=== PATIENT | male | born 1995 | race Caucasian/White ===

== ENCOUNTER 2025-04-19 08:37 | Emergency (ER) | payer OTHER, SELFPAY ==
[2025-04-19 08:38] VITALS: BP 149/101; PULSE 114; RESP 16; TEMP 37.1; O2SAT 99; BMI 41.1
--- NOTE | 2025-04-19 09:15 | EKG12_ITS ---
Test Reason : DYSRHYTHMIA Blood Pressure : */* mmHG Vent. Rate : 97 BPM Atrial Rate : 97 BPM P-R Int : 140 ms QRS Dur : 82 ms QT Int : 322 ms P-R-T Axes : 41 22 39 degrees QTcB Int : 408 ms Normal sinus rhythm Normal ECG Reconfirmed by Karen Doran ([id number]), food expeditor CARLEY SOLIZ ([id number]) on 04/22/2025 10:24:06 AM Also confirmed by Karen Doran ([id number]), food expeditor CARLEY SOLIZ ([id number]) on 04/23/2025 8:32:09 AM Referred By: CORETTA Confirmed By: Karen Doran
--- NOTE | 2025-04-19 09:16 | US_ITS ---
PROCEDURE: ABDOMEN LIMITED 04/19/2025 REASON FOR EXAM: REPEAT, ABD PAIN TECHNIQUE: Procedure Code: USABDL Modality: US Procedure: ABDOMEN LIMITED COMPARISON: None FINDINGS: Liver: Liver is enlarged at 19 cm and shows diffuse fatty infiltration, no discrete lesion. Gallbladder: Distends normally without evidence of echogenic debris. Gallbladder wall measures 1.1 mm. Hearing And Speech Assistant notes a negative Li's sign, no pericholecystic fluid. Common bile duct: Normal measuring 2.5 mm. Pancreas: Visualized pancreas is nonspecifically echogenic. Kidneys: The right kidney measures 11.4 x 4.9 x 5.1 cm. No hydronephrosis, calculi or mass. Cortex measures 1.3 cm US/Abdomen Limited IMPRESSION: Hepatomegaly with diffuse fatty infiltration of the liver, no discrete lesion Reading Location: [id number]
[2025-04-19 09:23] LABS: Hematocrit 43.6 % (40-54); Hemoglobin 14.4 g/dL (13.0-16.5); Immature Granulocytes Count 0.050 X10^3/uL (0.0-0.0); Mean Corp Hgb Conc 33.0 g/dL (32-36); Mean Corpuscular Volume 82.0 fL (80-94); Mean Platelet Vol. 10.7 fl (6.2-12.0); NRBC Flagged by Analyzer 0 % (0-5); POSITIVE DIFFERENTIAL YES; Platelet Count 254 K/mm3 (150-450); RBC Distribution Width CV 12.9 % (11.6-14.6); RBC Distribution Width SD 38.1 fl (35.1-43.9); Red Blood Count 5.32 M/mm3 (4.6-6.2); White Blood Count 11.0 K/mm3 (4.4-11.0)
[2025-04-19] MEDS: 0.9% Normal Saline (1000mL) 1,000 ML 1000 ML IV (09:26)
--- NOTE | 2025-04-19 09:35 | RAD_ITS ---
PROCEDURE: CHEST 1 VIEW (PORTABLE) 04/19/2025 REASON FOR EXAM: CHEST PAIN TECHNIQUE: Frontal view of the chest. COMPARISON: None FINDINGS: Hardware: EKG electrodes are seen. Heart: Cardiac and mediastinal contours are stable. Lungs: The lungs are clear. Bones: The bones are unremarkable. RAD/Chest 1 View (Portable) IMPRESSION: No Acute Findings. Reading Location: [id number]
[2025-04-19 09:44] LABS: AST(SGOT) 21 U/L (<=37); Alanine Aminotransfer ALT/SGPT 20 U/L (<=46); Albumin, Serum 4.2 g/dL (3.5-5.0); Alkaline Phosphatase 58 U/L (40-129); Anion Gap 11 (5-15); BUN 11 mg/dL (4-19); BUN/Creat Ratio 10.6 RATIO (10-20); Calcium,Total 9.3 mg/dL (7.6-11.0); Carbon Dioxide 24.8 mmol/L (21.0-32.0); Chloride 101 mmol/L (98-108); Estimated Creatinine Clearance 153.80 ml/min (50-250); Globulin 2.9 g/dL (2.2-4.2); Glucose 90 mg/dL (70-99); Lipase 38 U/L (13-75); Potassium 4.6 mmol/L (3.3-5.1)
[2025-04-19 09:56] LABS: Mucous, Urine 0 SEEN /hpf (<or=2+); Red Blood Cells-Urine 0 SEEN /hpf (0-5); Squamous Epithelial Cells - UA 0 SEEN /hpf (0-5)
--- NOTE | 2025-04-19 09:56 | EX.ED.DYSGE1 ---
HPI History of Present Illness Chief Complaint: Abd Pain Narrative Narrative: Pt is a 29-year-old male who is presenting to the ER today with chief complaint of 3-day history of nausea, vomiting, right upper quadrant discomfort. Patient has known gallbladder disease. Patient is seeing a surgeon on May 08 to schedule surgery. Patient states he has fever last evening, nausea no vomiting. Patient stated he wanted to vomit last night and this morning but did not. Patient has right lower chest pain. Patient has no radiation of pain to neck or shoulder. No bowel or bladder changes. No history of kidney stone. Patient has no recent traveling. Sisters at bedside. Patient has no rash. Patient is concerned for gallbladder attack and wondering if he needs his gallbladder out sooner than later. Patient does not recall if he had gallstones on his last gallbladder ultrasound report or not. Patient is a poor historian, states that he saw somebody previously, unsure if it was a GI doctor or a surgeon. Patient non-smoker, rare alcohol, no illicit drug use. No recent heavy lifting, twisting or turning. No rash. REVIEW OF SYSTEMS: Unless otherwise stated in this report the patient's positive and negative responses for review of systems for constitutional, eyes, ENT, cardiovascular, respiratory, gastrointestinal, neurological, , musculoskeletal, and integument systems and related systems to the presenting problem are either stated in the history of present illness or were not pertinent or were negative for the symptoms and/or complaints related to the presenting medical problem. Nurse's notes and vital signs reviewed. The patient is not hypoxic. Vital signs reviewed and patient is not hypoxic. General: The patient appears well and in no apparent distress. Patient is resting comfortably on cart. Not toxic, lethargic, or listless. Skin: Warm, dry, no pallor noted. There is no rash noted. Head: Normocephalic, atraumatic Eye: Normal conjunctiva, no drainage, EOMI. PERRL. Ears, Nose, Mouth, and Throat: oral mucosa is moist. Nares patent. Mouth without vesicles. Cardiovascular: Regular Rate and Rhythm, no murmurs, gallops, or rubs. Mild reproducible tenderness palpation over right lower anterior chest wall, but most of his pain is to the right upper quadrant pain Respiratory: Patient is in no distress, no accessory muscle use, lungs are clear to auscultation, no wheezing, rales or rhonchi Back: non-tender, no CVA tenderness bilaterally to percussion. NO CTLS midline or paraspinal tenderness to palpation. GI: Soft, positive Li sign, mild to moderate right upper quadrant tenderness palpation, mild midepigastric tenderness palpation, obese, no rash, no flank pain bilateral, no peritoneal signs, otherwise no tenderness to palpation, no masses appreciated. No rebound, guarding, or rigidity noted. Musculoskeletal: The patient has full range of motion of all extremities and joints with no difficulty. Patient has no motor, no sensory deficits. Neurological: A&O x4, normal speech, no focal neurological deficits. Psychiatric: Cooperative [facility] Medical History (Updated 04/19/25 @ 11:[address] Galileo Myers, DO) Acid reflux Home Medications ?Medication ?Instructions ?Recorded ?Last Taken ?Type omeprazole 40 mg capsule,delayed 40 mg PO QDAY 03/19/25 Unknown History release semaglutide 2 mg/dose (8 mg/3 mL) 2 mg subcut QWEEK 03/19/25 Unknown History subcutaneous pen injector (Ozempic) methylprednisolone 4 mg tablets in 4 mg PO BID #21 tabs 04/04/25 Unknown Rx a dose pack (Medrol (Alexx)) hydrocodone-acetaminophen 5-325mg 1 tab PO Q6H PRN PRN Pain 3 days 04/19/25 Unknown Rx 5mg-325mg #8 TABLETS ondansetron 4 mg disintegrating 4 mg PO Q8H PRN PRN Nausea #10 tabs 04/19/25 Unknown Rx tablet Allergy/AdvReac Type Severity Reaction Status Date / Time No Known Allergies Allergy Verified 04/19/25 08:39 Surgical History Hx of tonsillectomy Hx of appendectomy Social History Smoking Status: Never smoker EXAM Physical Exam Const Vital Signs: 04/19/25 08:38 04/19/25 10:54 Temperature 98.8 F Temperature Source Oral Pulse Rate 114 H 109 H Respiratory Rate 16 17 Blood Pressure 149/101 H 118/79 Blood Pressure Mean 117 92 Pulse Ox 99 100 Oxygen Delivery Method Room Air Room Air MDM MDM MDM Narrative Medical decision making narrative: Patient seen and examined: IV, repeat ultrasound, IV Zofran, fluids, Toradol, Pepcid. Repeat labs. Differential diagnosis includes but is not limited to: Acute cholecystitis, biliary colic, gastritis, ACS, kidney stone, gastritis, pneumonia Relevant laboratory interpretation: Repeat labs show no elevation of LFTs, lipase, no elevated white blood cell count. Radiological studies: Gallbladder ultrasound shows no acute findings, fatty liver disease. This was discussed with patient. He was given a copy of her his ultrasound report. Reevaluation: Patient feels better after IV Pepcid, Toradol, Zofran and IV fluids. EKG interpretation. Sinus tachycardia 101. Normal axis deviation. No acute ST elevation, no acute ectopy. QTc of 404. Social barriers to healthcare: There are no food insecurities, there is no issue with transportation, there are no insurance barriers Disposition: Patient will continue to follow-up with surgeon. Patient sent in with prescription for Zofran and [place] to use as needed. Patient to continue acid reflux medication. Patient is to call his surgeon, Dr. Alfred Hernandez to see if he can have a sooner follow-up than May 08. The surgeon is out of town next week. Patient was given strict return precautions for intractable abdominal pain, nausea or vomiting or any other acute concerns. Patient was educated on nonfatty diet And gallbladder diet. Patient stated that he ate a baconator from [place] a few days ago that started his symptoms. Patient ate spaghetti yesterday. Lab Data Attestation: I reviewed the patient's lab results. Labs: Laboratory Results - last 24 hr 04/19/25 04/19/25 08:58 09:50 WBC 11.0 RBC 5.32 Hgb 14.4 Hct 43.6 MCV 82.0 MCH 27.1 MCHC 33.0 RDW Std Deviation 38.1 RDW Coeff of Tanya 12.9 Plt Count 254 MPV 10.7 Immature Gran % (Auto) 0.500 Neut % (Auto) 86.1 H Lymph % (Auto) 4.1 L Bailey % (Auto) 8.4 Eos % (Auto) 0.6 Baso % (Auto) 0.3 Absolute Neuts (auto) 9.4 H Absolute Lymphs (auto) 0.45 L Nucleated RBC % 0 Sodium 137 Potassium 4.6 Chloride 101 Carbon Dioxide 24.8 Anion Gap 11 BUN 11 Creatinine 1.00 Estim Creat Clear Calc 153.80 Est GFR (MDRD) Non-Af 103 BUN/Creatinine Ratio 10.6 Glucose 90 Calcium 9.3 Total Bilirubin 0.62 AST 21 ALT 20 Alkaline Phosphatase 58 Total Protein 7.2 Albumin 4.2 Globulin 2.9 Albumin/Globulin Ratio 1.4 Lipase 38 Urine Color Yellow Urine Clarity Sl. Cloudy Urine pH 8.0 Ur Specific [place] 1.015 Urine Protein Negative Urine Glucose (UA) Normal Urine Ketones Negative Urine Occult Blood Negative Urine Nitrite Negative Urine Bilirubin Negative Urine Urobilinogen Normal Ur Leukocyte Esterase Negative Urine RBC 0 SEEN Urine WBC 0 SEEN Ur Squamous Epith Cells 0 SEEN Urine Bacteria 0 SEEN Urine Mucus 0 SEEN Radiography Diagnostic Testing: Clinical Impression(s) from Imaging Studies Abdomen Ultrasound 04/19/25 09:16 IMPRESSION: Hepatomegaly with diffuse fatty infiltration of the liver, no discrete lesion Reading Location: [id number] Chest X-Ray 04/19/25 09:35 IMPRESSION: No Acute Findings. Reading Location: [id number] Discharge Plan Triage Chief Complaint: Abd Pain ED Provider: Galileo Myers Dx/Rx/DC Orders Clinical Impression: Abdominal pain, Biliary colic, Nausea Instructions: Abdominal Pain, Understanding Gastritis, ED Vomiting (Adult) Prescriptions: New hydrocodone-acetaminophen 5-325 mg tablet 1 tab PO Q6H PRN PRN (Reason: Pain) 3 Days Qty: 8 0RF ondansetron 4 mg tablet,disintegrating 4 mg PO Q8H PRN PRN (Reason: Nausea) Qty: 10 0RF No Action omeprazole 40 mg capsule,delayed release(DR/EC) 40 mg PO QDAY Ozempic 2 mg/dose (8 mg/3 mL) pen injector 2 mg subcut QWEEK methylprednisolone [Medrol (Alexx)] 4 mg tablets,dose pack 4 mg PO BID Qty: 21 0RF Stand Alone Forms: ED Work / School Excuse Primary Care Provider: Ankit Allen Referrals: Ankit Allen PA [Primary Care Provider, Urgent Care] Activity Restrictions/Additional Instructions: A copy of your gallbladder ultrasound report has been given to you. Continue using antacid medication daily. Use onim-khn-[id number] Maalox, Mylanta if needed for heartburn or acid reflux. Do not use Tums, Rolaids, or Pepto-Bismol, You may alternate Tylenol and either Motrin, Advil, or ibuprofen every 4 hours for pain or fever. You may substitute [place] for Tylenol if the pain is severe. However, do not take [place] and Tylenol together, you may accidentally take too much Tylenol in 1 day. The maximum dose of Tylenol daily is 3000 mg. The maximum dose of either Motrin, Advil, or ibuprofen is 2400 mg daily. Take medication with food or drink to help buffer the medication in your stomach. Print Language: Vietnamese Disposition Disposition: Home, Self Care
[2025-04-19 09:58] LABS: Color, Urine Yellow (Yellow); Glucose, Dipstick Normal (Normal); Ketone-Dipstick Negative (Negative); Leukocyte Esterase-Dipstick Negative /ul (Negative); Nitrite-Dipstick Negative (Negative); Occult Blood-Urine Negative /ul (Negative); Protein-Dipstick Negative (Negative); Specific Gravity, Urine 1.015 (1.002-1.030); Urine Bilirubin Dipstick Negative (Negative)
[2025-04-19] MEDS: Famotidine 200 MG/20 ML MDV 20 MG in 0.9% Normal Saline (Pres. free 8 ML 300 MG IV (10:18)
[2025-04-19 10:54] VITALS: BP 118/79; PULSE 109; RESP 17; O2SAT 100
[2025-04-19 11:58] VITALS: BP 118/101; PULSE 112; RESP 18; TEMP 36.8; O2SAT 100
== END 2025-04-19 12:19 | disposition home or self-care (01) ==
PROVIDERS: Emergency Provider Emergency Medicine; PCP Physician Assistant; Visit Provider Emergency Medicine
DX: K80.50 Calculus of bile duct without cholangitis or cholecystitis without obstruction (principal); K76.0 Fatty (change of) liver, not elsewhere classified; R03.0 Elevated blood-pressure reading, without diagnosis of hypertension
CPT/HCPCS: 71045; 76705; 80053; 81001; 83690; 85025; 93005; 96374; 96375; 99283; A4216; J2405

== ENCOUNTER 2025-04-19 19:25 | Emergency (ER) | payer OTHER, SELFPAY ==
[2025-04-19 19:25] VITALS: BP 116/74; PULSE 109; RESP 16; TEMP 36.6; O2SAT 100; BMI 48.8
--- NOTE | 2025-04-19 20:45 | EKG12_ITS ---
Test Reason : Blood Pressure : */* mmHG Vent. Rate : 101 BPM Atrial Rate : 101 BPM P-R Int : 150 ms QRS Dur : 82 ms QT Int : 312 ms P-R-T Axes : 48 24 38 degrees QTcB Int : 404 ms Sinus tachycardia Otherwise normal ECG No previous ECGs available Confirmed by Umang Roberto (Kylee), features editor CARLEY SOLIZ ([id number]) on 04/23/2025 11:40:05 AM Also confirmed by Umang Roberto (Kylee), features editor CARLEY SOLIZ ([id number]) on 04/24/2025 9:47:46 AM Referred By: LUBA Confirmed By: Umang Roberto
[2025-04-19 21:12] LABS: Hematocrit 43.2 % (40-54); Hemoglobin 14.1 g/dL (13.0-16.5); Immature Granulocytes Count 0.040 X10^3/uL (0.0-0.0); Mean Corp Hgb Conc 32.6 g/dL (32-36); Mean Corpuscular Volume 82.4 fL (80-94); Mean Platelet Vol. 10.3 fl (6.2-12.0); NRBC Flagged by Analyzer 0 % (0-5); Platelet Count 236 K/mm3 (150-450); RBC Distribution Width CV 13.1 % (11.6-14.6); RBC Distribution Width SD 38.9 fl (35.1-43.9); Red Blood Count 5.24 M/mm3 (4.6-6.2); White Blood Count 11.1 K/mm3 (4.4-11.0)
--- NOTE | 2025-04-19 21:18 | EX.ED.DYSGE1 ---
HPI History of Present Illness Chief Complaint: Syncope Informant: patient and spouse/S.O. Onset/Context/Timing Onset: Today Context: Sudden Onset Timing: Intermittent Current Severity: Gone Maximum Severity: Moderate Narrative Narrative: 29-year-old male 2-day history of nasal congestion and fever. Was seen here had a negative workup. Had an outpatient COVID test x 2 which were both positive today. He was in the shower tonight he was feeling lightheaded drink some water and then had a syncopal episode that lasted probably about a minute according to his . He had syncopal episode before 1 time when he cut himself and saw his own blood. He denies any vomiting or diarrhea. Denies any melena. No chest pain. Prior similar symptoms: Yes Recent Illness/Hospitalization: No PFSH PFS Medical History Acid reflux Home Medications ?Medication ?Instructions ?Recorded ?Last Taken ?Type omeprazole 40 mg capsule,delayed 40 mg PO QDAY 03/19/25 Unknown History release semaglutide 2 mg/dose (8 mg/3 mL) 2 mg subcut QWEEK 03/19/25 Unknown History subcutaneous pen injector (Ozempic) methylprednisolone 4 mg tablets in 4 mg PO BID #21 tabs 04/04/25 Unknown Rx a dose pack (Medrol (Alexx)) Allergy/AdvReac Type Severity Reaction Status Date / Time No Known Allergies Allergy Verified 04/19/25 19:27 Surgical History Hx of tonsillectomy Hx of appendectomy Social History Smoking Status: Current some day smoker tobacco type: cigarettes ROS ROS ED ROS Narrative Nasal congestion fever and chills. Constitutional Constitutional ED: Reports chills and fever(s) Eyes Eyes: Denies blurry vision ENT ENT ED: Denies ear pain Respiratory/Chest Respiratory/Chest: Reports cough Gastrointestinal Gastrointestinal: Denies abdominal pain, diarrhea, melena, nausea or vomiting Genitourinary Genitourinary ED: Denies dysuria or hematuria Musculoskeletal Musculoskeletal: Denies arthralgias Integumentary Denies abscess Neurologic Neurologic: Denies headache(s) Psychiatric Psychiatric: Denies anxiety Endocrine Endocrinology: Denies cold intolerance Hematologic/Lymphatic Hematologic/Lymphatic: Reports none Allergic/Immunologic Allergic/Immunologic ED: Denies mouth swelling, tongue swelling or urticaria EXAM Physical Exam Narrative Exam Narrative: Well-appearing 29-year-old male. Vital signs stable he is tachycardic 109 pressure 160/74 pulse ox 100% on room air no signs hypoxia. He does not look septic or toxic he does look mildly dehydrated. H EENT exam pupils round react light. Mildly dry mucous membranes. No trauma to his face or scalp nontender no hematoma. C-spine neck nontender no lymphadenopathy. Back nontender. Lungs clear to auscultation bilaterally. Heart regular rhythm rate 110 no murmur. Chest wall ribs nontender. Abdomen soft nontender. Moving all 4 extremities. Nontender. No edema. No rashes. Normal range of motion and strength. Normal in appearance. Normal construction teacher strength. Normal dorsi plantarflexion. Back nontender. Neurologically is awake alert. Answer questions following commands. Const Vital Signs: 04/19/25 19:25 04/19/25 21:22 04/19/25 21:22 Temperature 98 F Temperature Source Oral Pulse Rate 109 H Respiratory Rate 16 Respiratory Effort Normal Non-Labored Respiratory Pattern Tachypnea Blood Pressure 116/74 Blood Pressure Mean 88 Pulse Ox 100 Oxygen Delivery Method Room Air Room Air 04/19/25 21:47 Temperature Temperature Source Pulse Rate 93 Respiratory Rate 20 H Respiratory Effort Respiratory Pattern Blood Pressure 137/71 H Blood Pressure Mean 93 Pulse Ox 97 Oxygen Delivery Method Room Air MDM MDM MDM Narrative Medical decision making narrative: 29-year-old male COVID-positive URI symptoms in the last 2 days. Negative recent workup this morning in emergency department. Received IV fluids syncope workup. By think more likely was dehydrated and when he got shower he vasodilated dropped his pressure and passed out. Clinically looks good at this time. Repeat exam at 10:30 PM patient doing well. He is sitting upright in bed. Says he is feeling okay. Repeat chest and abdominal exam unremarkable he looks good. He is comfortable being discharged to home. I went over the test results of both he and his . History & Record Review Discussion w/independent historian: Patient and Family Additional record(s) reviewed:: Prior outpatient record, Prior ED visit and Prior labs Lab Data Attestation: I reviewed the patient's lab results. Lab results narrative: CBC shows a white count 11.1. H&H 14 and 43. Platelets 236. Chemistries show a gap of 9. Normal BUN of 11 creatinine 1.1. Glucose 92. Liver enzymes unremarkable. Labs: Laboratory Results - last 24 hr 04/19/25 21:04 WBC 11.1 H RBC 5.24 Hgb 14.1 Hct 43.2 MCV 82.4 MCH 26.9 L MCHC 32.6 RDW Std Deviation 38.9 RDW Coeff of Tanya 13.1 Plt Count 236 MPV 10.3 Immature Gran % (Auto) 0.400 Neut % (Auto) 77.5 H Lymph % (Auto) 8.7 L Cloud % (Auto) 12.9 H Eos % (Auto) 0.1 Baso % (Auto) 0.4 Absolute Neuts (auto) 8.6 H Absolute Lymphs (auto) 0.97 Nucleated RBC % 0 Sodium 136 Potassium 4.4 Chloride 101 Carbon Dioxide 26.0 Anion Gap 9 BUN 11 Creatinine 1.17 Estim Creat Clear Calc 144.76 Est GFR (MDRD) Non-Af 85 BUN/Creatinine Ratio 9.7 L Glucose 92 Calcium 9.1 Total Bilirubin 0.44 AST 18 ALT 18 Alkaline Phosphatase 53 Total Protein 7.3 Albumin 4.1 Globulin 3.2 Albumin/Globulin Ratio 1.3 Radiography Chest X-Ray - ED: 2 View, Read by ED Physician, Read by Radiologist, Normal, Heart, Lungs, Mediastinum, Bony Structures, No Acute Disease and Chronic Changes Diagnostic Testing: Clinical Impression(s) from Imaging Studies Chest X-Ray 04/19/25 21:23 IMPRESSION: No airspace consolidation. Reading Location: [facility] Chest x-ray, 2 views, AP and lateral, interpreted by myself and the radiologist shows normal cardiac silhouette. Normal lung field. Right changes no acute process. Rhythm Strip Rhythm Strip: Sinus Rhythm Rate: 97 Ectopy: None EKG Initial EKG: Attestation: I personally reviewed and interpreted this EKG as follows: Interpretation: Sinus Rhythm and No Acute Injury Pattern Comments: Normal sinus rhythm rate 97 no acute signs of IN or ischemia no dysrhythmia. Discharge Plan Triage Chief Complaint: Syncope ED Provider: Ishaan Hernandez Dx/Rx/DC Orders Clinical Impression: Coronavirus infection, Syncope Instructions: Human Coronaviruses, Causes of Syncope Prescriptions: No Action omeprazole 40 mg capsule,delayed release(DR/EC) 40 mg PO QDAY Ozempic 2 mg/dose (8 mg/3 mL) pen injector 2 mg subcut QWEEK methylprednisolone [Medrol (Alexx)] 4 mg tablets,dose pack 4 mg PO BID Qty: 21 0RF Primary Care Provider: Ankit Allen Referrals: Ankit Allen PA [Primary Care Provider, Urgent Care] - As Needed Activity Restrictions/Additional Instructions: Plenty of fluids and rest. Tylenol and Motrin as needed. He should progressively start feeling better if not follow-up your primary care provider. If you are feeling worse return to the Emergency Department. Your tests, EKG and chest x-ray tonight all look good. Print Language: Citizen Of [place] Disposition Disposition: Home, Self Care
--- NOTE | 2025-04-19 21:23 | RAD_ITS ---
PROCEDURE: CHEST PA AND LATERAL 04/19/2025 REASON FOR EXAM: COVID COUGH TECHNIQUE: Procedure Code: RADCXR Modality: DX Procedure: CHEST PA AND LATERAL COMPARISON: 04/19/2025 FINDINGS: Lungs/Pleura: Clear. No focal consolidation or pleural effusion. Heart/Mediastinum: Normal in size. Bones/Soft tissues: Mild degenerative changes of the spine. RAD/Chest PA and Lateral IMPRESSION: No airspace consolidation. Reading Location: [id number]
--- OUTSIDE RECORDS SUMMARY | 2025-04-19 21:41 | XMS RPT_ITS | CCD ---
Author Organization [facility] Care Team Providers Care [employer]borne [employer] Analyst Name Role Phone Alicia PA-C, Luke E Unavailable Alicia PA-C, Luke E Unavailable Sleep Disorder Provider Unavailable Unavaillesli Santana MD, Cristian Barksdale Unavailable David COMBO WELDER, Ara Martinez Unavailable Unavailable Rafael Pabon MD Unavailable Michael RAMÍREZ, Buffy Cloud Unavailable Jeanna England MA Unavailable Unavailable Boo COMBO WELDER, Mckenna Unavailable Unavailable Alexis COMBO WELDER, Rommel Unavailable Unavailable Marques (Scribe), Noman Unavailable Unavailab jessica Lujan RN, Shaina Y Unavailable Unavailable Billy COMBO WELDER, Justine Unavailable Unavailable Aron RAMÍREZ, Laurel Posadas Unavailable Ruddy Garay MD Unavailable Vess COMBO WELDER, Monserrat L Unavailable Unavailable Wengerd COMBO WELDER, Leslye Unavailable Unavailabl e Unavailable Unavailable Flory JOHNSONN, Antonette Unavailable Siri Durán MA Unavailable Unavailable Physical Therapy Provider Unavailable Gabriela [facility] Unavailable Shelby Carmichael LPN Unavailable Unavailabl e Unavailable Unavailable Krystle Llanos Unavailable Unavailable ALICIA, LUKE E Admitting Unavailable ALICIA, LUKE E Primary Care Unavailable ALICIA, LUKE E Consulting Unavailable ALICIA, LUKE E Attending Unavailable PROVIDER, UNKNOWN Consulting Unavailable ALICIA, LUKE E Admitting Unavailable ALICIA, LUKE E Primary Care Unavailable ALICIA, LUKE E Consulting Unavailable ANKIT VARGAS Attending Unavailable PROVIDER, UNKNOWN Consulting Unavailable ANKIT VARGAS Admitting Unavailable ANKIT VARGAS Primary Care Unavailable ANKIT VARGAS Consulting Unavailable AKNIT VARGAS Attending Unavailable PROVIDER, UNKNOWN Consulting Unavailable Medications Current Medications Medication Drug Class(es) Dates Sig (Normalized) Sig (Original) omeprazole 40 mg delayed release oral capsule (20 sources) Proton Pump Inhibitor Start: 12-03-2024 omeprazole 40 mg capsule,delayed release ; 1 (one) Capsule as needed for 30 days Quantity: 30 {Capsule} Refills: 5 Ordered: 03-Dec-2024 DARRELL Vargas Start: 03-Dec-2024 Comments: Medication taken as needed. Start: 11-18-2023 omeprazole 40 mg capsule,delayed release ; 1 (one) Capsule as needed for 30 days Quantity: 30 {Capsule} Refills: 5 Ordered: 18-Nov-2023 DARRELL Vargas Start: 18-Nov-2023 Comments: Medication taken as needed. Start: 11-16-2023 omeprazole 40 mg capsule,delayed release ; 1 (one) Capsule daily for 30 days Quantity: 30 {Capsule} Refills: 5 Ordered: 16-Nov-2023 DARRELL Vargas Start: 16-Nov-2023 Start: 05-03-2023 omeprazole 40 mg capsule,delayed release ; 1 (one) Capsule daily for 30 days Quantity: 30 {Capsule} Refills: 5 Ordered: 03-May-2023 DARRELL Vargas Start: 03-May-2023 Comments: future fill Start: 04-26-2023 omeprazole 40 mg capsule,delayed release ; 1 (one) Capsule daily for 30 days Quantity: 30 {Capsule} Refills: 0 Ordered: 26-Apr-2023 DARRELL Vargas Start: 26-Apr-2023 Comments: first thing in the morning Comment on above: future fill first thing in the m orning Medication taken as needed. Ozempic 0.25 mg or 0.5 mg (2 mg/3 mL) subcutaneous pen injector (8 sources) Start: 12-22-19 25 inject 1 mg by subcutaneous injection every week Ozempic 0.25 mg or 0.5 mg (2 mg/3 mL) subcutaneous pen injector ; 1 (one) Milligram weekly for 2 weeks then increase to 2mg weekly from then on for 0 days Quantity: 2.5 {Milliliter} Refills: 0 Ordered: 21-Dec-2024 DARRELL Vargas Start: 21-Dec-2024 Comments: semaglutide/cyanoco balamine - 5mg/ 0.5mg/mL 2.5mL vial Start: 11-29-2024 inject 1 mg by subcutaneous injection every week Ozempic 0.25 mg or 0.5 mg (2 mg/3 mL) subcutaneous pen injector ; 1 (one) Milligram weekly for 2 weeks then increase to 2mg weekly from then on for 0 days Quantity: 2.5 {Milliliter} Refills: 0 Ordered: 29-Nov-2024 DARRELL Vargas Start: 29-Nov-2024 Comments: semaglutide/cyanocobalamine - 5mg/ 0.5mg/mL 2.5mL vial Start: 11-26-2024 inject 0.5 mg by subcutaneous injection every week Ozempic 0.25 mg or 0.5 mg (2 mg/3 mL) subcutaneous pen injector ; 0.5 Milligram weekly for 2 weeks then increase to 1mg weekly from then on for 0 days Quantity: 2.5 {Milliliter} Refills: 0 Ordered: 26-Nov-2024 DARRELL Vargas Start: 26-Nov-2024 Comments: semaglutide/cyanocobalamine - 1mg/ 0.5mg/mL 2.5mL vial Start: 10-10-2024 inject 1 mg by subcutaneous injection once Ozempic 0.25 mg or 0.5 mg (2 mg/3 mL) subcutaneous pen injector ; 0.25 Milligram every weekfor 4 weeks; then increase to 0.5 mg every week for 0 days Quantity: 2.5 {Milliliter} Refills: 0 Ordered: 10-Oct-2024 DARRELL Vargas Start: 10-Oct-2024 Comments: semaglutide/cyanocobalamine - 1mg/ 0.5mg/mL 2.5mL vial Start: 09-25-2024 inject 0.25 mg by subcutaneous injection once, then inject 0.5 mg by subcutaneous injection every week Ozempic 0.25 mg or 0.5 mg (2 mg/3 mL) subcutaneous pen injector ; 0.25 Milligram every weekfor 4 weeks; then increase to 0.5 mg every week for 0 days Quantity: 3 {Milliliter} Refills: 0 Ordered: 25-Sep-2024 DARRELL Vargas Start: 25-Sep-2024 Comment on above: semaglutide/cyanocob alamine - 1mg/ 0.5mg/mL 2.5mL vial semaglutide/cyanocob alamine - 5mg/ 0.5mg/mL 2.5mL vial Completed/Discontinued Medications Medication Drug Class(es) Dates Sig (Normalized) Sig (Original) [id number] 200 actuat albuterol 0.09 mg/actuat metered dose inhaler (20 sources) beta2-Adrenergic Agonist Start: 02-01-2013 End: 01-28-2016 take 2 puff(s) by inhalation every four to six hours as needed Ventolin HFA 108 (90 Base) MCG/ACT Inhalation Aerosol Solution ; 2 (two) puff(s) puff(s) every 4-6hrs prn for 0 days Quantity: 1 {Inhaler(s)} Refills: 0 Ordered: 28-Jan-2016 EVELIA Lujan Start: 01-Feb-2013 End: 28-Jan-2016 Status: Inactive amoxicillin 875 mg oral tablet (20 sources) Penicillin-class Antibacterial Start: 03-05-2024 End: 03-12-2024 amoxicillin 875 mg tablet ; 1 (one) tablet two times daily for 7 days Quantity: 14 {Tablet} Refills: 0 Ordered: 05-Mar-2024 DARRELL Vargas Start: 05-Mar-2024 End: 12-Mar-2024 Status: Inactive Start: 04-13-2022 End: 04-23-2022 take 1 tablet by mouth twice daily Amoxicillin 500 MG Oral Tablet ; 1 (one) Tablet twice a day for 10 days Quantity: 20 {Tablet} Refills: 0 Ordered: 13-Apr-2022 DARRELL Vargas Start: 13-Apr-2022 End: 23-Apr-2022 Status: Inactive Dispense as Written Start: 08-25-2012 End: 09-04-2012 take 1 tablet by mouth three times daily AMOXICILLIN, 500MG (Oral Tablet) ; 1 Tab three times daily for 10 days Quantity: 30 {Tab} Refills: 0 Ordered: 01-Feb-2013 MD Cristian Santana Start: 25-Aug-2012 End: 04-Sep-2012 Status: Inactive amoxicillin 875 mg / clavulanate 125 mg oral tablet (20 sources) Penicillin-class Antibacterial Start: 01-12-2019 End: 01-22-2019 take 1 tablet by mouth twice daily at mealtime Amoxicillin-Pot Clavulanate 875-125 MG Oral Tablet ; 1 (one) Tablet BID for 10 days Quantity: 20 {Tablet} Refills: 0 Ordered: 12-Jan-2019 DARRELL Sharp Start: 12-Jan-2019 End: 22-Jan-2019 Status: Inactive Comments: Take with food Comment on above: Take with food atorvastatin 10 mg oral tablet (20 sources) HMG-CoA Reductase Inhibitor Start: 08-24-2023 End: 03-05-2024 atorvastatin 10 mg tablet ; 1 (one) tablet QHS for 0 days Quantity: 30 {Tablet} Refills: 5 Ordered: 05-Mar-2024 SOY Haddad Start: 24-Aug-2023 End: 05-Mar-2024 Status: Discontinued azithromycin 250 mg oral tablet (20 sources) Macrolide Antimicrobial Start: 02-27-2016 End: 07-20-2016 Zithromax Z-Alexx 250 MG Oral Tablet ; 2 (two) Tabs day one, then one daily for 4 days for 0 days Quantity: 1 {Package} Refills: 0 Ordered: 20-Jul-2016 Start: 27-Feb-2016 End: 20-Jul-2016 Status: Inactive cephalexin 500 mg oral capsule (20 sources) Cephalosporin Antibacterial Start: 01-14-2014 End: 01-28-2014 take 1 capsule by mouth three times daily CEPHALEXIN, 500MG (Oral Capsule) ; 1 Capsule three times daily for 14 days Quantity: 42 {Capsule} Refills: 0 Ordered: 14-Jan-2014 MD Rafael Pabon Start: 14-Jan-2014 End: 28-Jan-2014 Status: Inactive ergocalciferol 1.25 mg oral capsule (20 sources) Provitamin D2 Compound Start: 09-13-2014 End: 02-27-2016 take 1 capsule by mouth every week Ergocalciferol 58055 UNIT Oral Capsule ; 1 (one) Capsule Capsule weekly for 0 days Quantity: 12 {Capsule} Refills: 0 Ordered: 27-Feb-2016 SOY Foster Start: 13-Sep-2014 End: 27-Feb-2016 Status: Inactive Comments: repeat lab in 13 weeks Comment on above: repeat lab in 13 wee ks ketoconazole 20 mg/ml topical cream (20 sources) Azole Antifungal Start: 12-19-2013 End: 01-28-2016 Ketoconazole 2 % External Cream ; 1 (one) application(s) application(s) one to 2 times daily for 6 weeks for 0 days Quantity: 60 {Gram} Refills: 1 Ordered: 28-Jan-2016 EVELIA Lujan Start: 19-Dec-2013 End: 28-Jan-2016 Status: Inactive terbinafine 250 mg oral tablet (20 sources) Allylamine Antifungal Start: 07-20-2016 End: 01-12-2019 take 1 tablet by mouth once daily LamISIL 250 MG Oral Tablet ; 1 (one) Tablet daily for 0 days Quantity: 14 {Tablet} Refills: 1 Ordered: 12-Jan-2019 SOY Foster Start: 20-Jul-2016 End: 12-Jan-2019 Status: Inactive Problems Active Problems Problem Classification Problem Date Documented Da te Episodic/Chronic Abdominal pain (20 sources) Right upper quadrant pain; Translations: [Right upper quadrant pain] 04-13-2022 Episodic Acute bronchitis (20 sources) Acute bronchitis 02-01-2013 Episodic Chronic obstructive pulmonary disease and bronchiectasis (20 sources) Bronchitis; Translations: [Bronchitis, not specified as acute or chronic] 06-11-2019 Episodic Conditions associated with dizziness or vertigo (20 sources) Dizziness; Translations: [Dizziness and giddiness] 09-12-2014 Episodic Disorders of lipid metabolism (20 sources) Hyperlipidemia; Translations: [Hyperlipidemia, unspecified] 05-17-2023 Chronic Esophageal disorders (20 sources) Gastroesophageal reflux disease; Translations: [Gastro-esophageal reflux disease without esophagitis] 05-03-2023 Chronic Influenza (20 sources) Influenza; Translations: [Influenza due to unidentified influenza virus with other respiratory manifestations] 06-11-2019 Episodic Malaise and fatigue (20 sources) Fatigue; Translations: [Other fatigue] 04-13-2022 Episodic Mycoses (20 sources) Tinea pedis; Translations: [Tinea pedis] 02-27-2016 Episodic Nutritional deficiencies (20 sources) Vitamin D deficiency; Translations: [Vitamin D deficiency, unspecified] 04-13-2022 Chronic Other ear and sense organ disorders (20 sources) Ear sensations - finding; Translations: [Other specified disorders of left ear] 04-13-2022 Episodic Other nutritional; endocrine; and metabolic disorders (20 sources) Body mass index 40+ - severely obese; Translations: [Morbid (severe) obesity due to excess calories] 05-03-2023 Chronic Other skin disorders (20 sources) Ingrowing nail; Translations: [Ingrowing nail] 06-11-2019 Episodic Other upper respiratory infections (20 sources) Sinusitis; Translations: [Chronic sinusitis, unspecified] 06-11-2019 Chronic Other upper respiratory infections (20 sources) Pharyngitis; Translations: [Acute pharyngitis, unspecified] 06-11-2019 Episodic Otitis media and related conditions (20 sources) Unspecified otitis media 06-11-2019 Episodi c Residual codes; unclassified (20 sources) Sleep apnea; Translations: [Sleep apnea, unspecified] 06-29-2021 Chronic Residual codes; unclassified (20 sources) Viral syndrome; Translations: [Other general symptoms and signs] 08-05-2023 Episodic Screening and history of mental health and substance abuse codes (20 sources) Patient encounter status; Translations: [Encounter for screening for depression] 05-03-2023 Episodic Sprains and strains (20 sources) Injury of groin; Translations: [Strain of adductor muscle, fascia and tendon of left thigh, initial encounter] 03-05-2024 Episodic Syncope (20 sources) Syncope; Translations: [Syncope and collapse] 04-13-2022 Episodic Unclassified (20 sources) Well adult male - The patient feels well with no complaints. The patient has a balanced diet. The patient exercises none (Active). The patient sleeps 6 hours per night. 05-03-2023 Unclassified (20 sources) Well Adult, male - The patient feels well with no complaints, has good energy level and is sleeping well. The patient is not using any method of contraception at this time. The patient has a balanced diet and takes supplemental vitamins (vitamin D). The patient exercises none (active lifestyle). The patient sleeps 5 hours per night. Note for Well Adult, male: discussed acid reflux questions today - gets on occasion and he would like reccomendation for OTC medication 01-28-2016 Unclassified (3 sources) Follow up for chronic condition - The patient is here for follow-up of obesity (started Ozempic). The patient always takes the prescribed medications. No side effects noted. The patient engages in regular exercise program 1-3 times per week. The patient's dietary compliance is fairly good usually adhering to recommendations. The patient states that there are no vision changes or weakness, weight has decreased and they do not have headaches. Note for Chronic condition follow-up: Patient notes that he will notice notable decrease in appetite for 1-2 days following weekly injection, otherwise he has been tolerating medication well. 11-29-2024 Viral infection (20 sources) Viral wart on finger; Translations: [Viral wart, unspecified] 04-13-2022 Episodic Past or Other Problems Problem Classification Problem Date Documented Da te Episodic/Chronic Unclassified (20 sources) Sore throat - The onset of the sore throat has been acute and has been occurring in an increasing pattern for 3 days. The course has been worsening. The sore throat is described as mild to moderate. The sore throat was precipitated by chest congestion, exposure to a person with influenza and exposure to a person with strep pharyngitis, but not by exposure to chemicals, exposure to a person with a viral illness, sinus infection or sinus problems. Symptoms include sore throat, fever, headache and runny nose, but do not include nasal congestion, cough or ear pain. The symptoms are aggravated by coughing, eating, swallowing and talking. Relieving factors include drinking liquids (Tylenol). Note for Sore throat: highest temp 101.4 04-13-2022 Unclassified (20 sources) sleep apnea - symptoms prior were wake up short of breath, wake up still feeling tired,snoring 3 different times pt has taken the mask off while sleeping and doesn't know he did it until morning pt is already sleeping better 09-25-2021 Unclassified (20 sources) viral wart - Pt presents to the office today to have the viral wart on his left index finger retreated. he has had two treatments and it went away for the most part but then started coming back a few days ago. pt just wants to get ahead of it before it gets to big. 07-30-2021 Unclassified (20 sources) Warts - The warts are located on the left hand (on index finger). Onset was gradual. The patient describes this as improving and becoming smaller (pt was in the office and had it treated on 06/02/21). Note for Warts: pt would like to have the wart retreated today.pt stated that no symptoms associated with the wart has changed since his SUBHASH 06-29-2021 Unclassified (20 sources) Warts - The patient is not currently being treated for this problem. Symptoms are exacerbated by rubbing, but are not exacerbated by scratching, contact with clothing or walking. The warts are located on the left hand (index finger). Onset was sudden 5 year(s) ago. The patient describes this as moderate in severity and unchanged (he picks at it and then it comes back. he thought it was a piece of metal at first.). Associated symptoms include irritation, but do not include itching, bleeding or pain. Note for Warts: pt would also like to have his ears irrigated. 06-02-2021 Unclassified (20 sources) Abdominal pain - The onset of the abdominal pain has been gradual and has been occurring in a persistent pattern for 6 months. The course has been increasing. The pain is described as a moderate dull ache. The pain is located in the right upper quadrant and does not radiate. The symptoms are aggravated by meals (1/2 to 1 hour after eating). The symptoms have been associated with bloating, diarrhea and heartburn, while the symptoms have not been associated with bloody stools, constipation, fever or nausea. 2020 Unclassified (20 sources) Cold Symptoms - Symptoms include nasal congestion, runny nose, dry cough, productive cough, fever, chills, general malaise and headache, but do not include sneezing, ear pain, sore throat or scratchy throat. The onset was sudden 3 day(s) ago. The symptoms occur constantly. The patient describes this as moderate in severity and worsening. Current treatment includes acetaminophen. Risk factors include smoking. The patient has not been exposed to an individual with a cough or an individual with similar symptoms. Medical history includes tonsillectomy, but patient denies history of seasonal allergies, asthma or recurrent ear infections. 06-11-2019 Unclassified (20 sources) Cold Symptoms - Symptoms include nasal congestion, runny nose, scratchy throat, productive cough and headache, but do not include ear pain or fever. The onset was gradual 1 week(s) ago. The symptoms occur constantly. The patient describes this as moderate in severity and unchanged. Current treatment includes non-prescription cold medication (sudafed, mucinex, robitussin). The patient has not been exposed to an individual with similar symptoms. Medical history includes tonsillectomy, but patient denies history of seasonal allergies, recurrent sinusitis, recurrent strep pharyngitis, asthma or recurrent ear infections. 01-12-2019 Unclassified (20 sources) Athlete's foot - The onset of the athlete's foot has been gradual and has been occurring in a persistent pattern for years. The course has been increasing. The athlete's foot is described as severe. Note for Athlete's foot: Patient states its painful and itchy 07-20-2016 Unclassified (20 sources) Cold Symptoms - Symptoms include nasal congestion (worst symptom), runny nose, sore throat and dry cough, but do not include ear pain, productive cough, fever or headache. The onset was gradual week(s) ago (week and half). The symptoms occur constantly. The patient describes this as moderate in severity and unchanged. Current treatment includes non-prescription cold medication (dayquil - ineffective). Medical history includes tonsillectomy, but patient denies history of seasonal allergies, recurrent sinusitis, recurrent strep pharyngitis, asthma or recurrent ear infections. Note for Upper respiratory infection: Eyes are red and watery; no foreign body sensation. No ill contacts. 02-27-2016 Unclassified (20 sources) Follow up consultation - The patient is here to follow-up after Emergency Room/Urgent Care on : (09/09/14). Current symptoms include weakness and other (tiredness and generalized aching. No c/o residual weakness or pain.). There is no past medical history of asthma or hypertension. Note for Consultation follow-up: Pt. was [place] [employer] [place] and became nauseated and sweaty Pt. had l.o.c. and notes it lasted approximately 10 minutes. A friend was with pt. at the time of syncope. Pt. continues with generalized weakness and fatigue. Mother was not given any probable cause in the ER and appeared frustrated with experience. 09-12-2014 Unclassified (20 sources) [ADDITIONAL REASON] Transition into care - The patient is transitioning into care from an emergency room . 09-12-2014 Unclassified (20 sources) Foot pain - The pain is in the left foot and is located in the great toe. The onset of the foot pain was acute and has been occurring in a persistent pattern for 1 week. The course has been without change. The pain is moderate. The pain is characterized as a dull aching. The symptoms have been associated with swelling. Note for Foot pain: Redness around toenail. 01-15-2014 Unclassified (20 sources) foot fungus - present on both feet x 2-3 months. Itchy, painful, and cracked, he has tried OTC's without relief....started when he got new shoes for work 12-20-2013 Unclassified (20 sources) Cold Symptoms - Symptoms include nasal congestion, ear fullness, hoarseness, productive cough, wheezing, fever, chills, general malaise and headache, but do not include sneezing, runny nose, ear pain or sore throat. The onset was gradual 2 day(s) ago. The symptoms occur constantly. The patient describes this as severe and unchanged. Current treatment includes NSAIDs. Risk factors do not include smoking. The patient has been exposed to an individual with similar symptoms. Medical history includes tonsillectomy, but patient denies history of seasonal allergies, recurrent sinusitis, recurrent strep pharyngitis, asthma or recurrent ear infections. Note for Upper respiratory infection: Pt c/o back discomfort and generalized body aches. Pt c/o episodes of s.o.b. and chest discomfort. 02-01-2013 Unclassified (20 sources) Cold Symptoms - Symptoms include sneezing, nasal congestion, ear pain (left ear), sore throat and dry cough, but do not include fever, general malaise or headache. The onset was gradual 1 week(s) ago. The patient describes this as moderate in severity and worsening. Current treatment includes non-prescription cold medication (using alks seltzer plus.). Note for Upper respiratory infection: reviewed by [facility] 08-25-2012 Unclassified (20 sources) [ADDITIONAL REASON] [facility] - Pt also here because the whites of eyes are pink. Started throughtout the night. EYes are draining watery to white to white discharge and eyes just feel crusty. No swelling noted. reviewed by [facility] 08-25-2012 Unclassified (20 sources) Cold Symptoms - Symptoms include nasal congestion, runny nose, ear pain, sore throat, dry cough, fever, general malaise and headache. The onset was sudden 2 day(s) ago. The symptoms occur constantly. The patient describes this as severe and worsening. Current treatment includes non-prescription cold medication (chloraseptic). 04-05-2011 Unclassified (20 sources) Form Completion Physicals - The patient feels well with minor complaints (cold symptoms and cough x 3 days. ). The patient exercises 3 - 4 times per week. The patient has an appropriate balanced diet and eats a variety of foods and sleeps on average 8 hours per night. Safety measures include appropriate use of safety belts. There are no behavioral problems. Last tetanus vaccination: Date: (2010). 09-17-2010 Unclassified (12 sources) Transition into care - The patient is transitioning into care from an emergency room . 09-12-2014 Unclassified (12 sources) [ADDITIONAL REASON] Follow up consultation - The patient is here to follow-up after Emergency Room/Urgent Care on : (09/09/14). Current symptoms include weakness and other (tiredness and generalized aching. No c/o residual weakness or pain.). There is no past medical history of asthma or hypertension. Note for Consultation follow-up: Pt. was at a [employer] and became nauseated and sweaty Pt. had l.o.c. and notes it lasted approximately 10 minutes. A friend was with pt. at the time of syncope. Pt. continues with generalized weakness and fatigue. Mother was not given any probable cause in the ER and appeared frustrated with experience. 09-12-2014 Unclassified (20 sources) Cold Symptoms - Symptoms include sneezing, nasal congestion, runny nose, ear fullness, sore throat, hoarseness and fever (100.3F yesterday), but do not include dry cough, productive cough or headache. The onset was 2 day(s) ago. The patient describes this as mild and improving. The patient is not currently being treated for this problem. The patient has not been exposed to an individual with a cough, an individual with an upper respiratory infection, an individual with similar symptoms, an individual with strep or secondhand smoke. Medical history includes tonsillectomy, but patient denies history of seasonal allergies, recurrent sinusitis, recurrent strep pharyngitis or recurrent ear infections. 08-05-2023 Unclassified (7 sources) [facility] - Pt also here because the whites of eyes are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 [facility], [facility].; [employer] Comment on above: Pattern: Regular 09-25-2021 08:11-0400 Systolic blood pressure 137 mm[Hg] Mckenna Haddad LPN [facility], [facility].; [employer], [employer]. Comment on above: Patient Position: Sitting; Cuff Location : Left Arm; Cuff Size: Standard 07-30-2021 08:06-0400 Body height 185.42 cm Justine Cervantes LPN [facility], [facility].; [place] [employer] [facility], [facility]. 07-30-2021 08:06-0400 Body mass index (BMI) [Ratio] 44.33 kg/m2 Justine Cervantes LPEd [facility], [facility].; [place] [employer] [facility], [facility]. 07-30-2021 08:06-0400 Body surface area Derived from formula 2.68 m2 Justine Cervantes LPN [facility], [facility].; [employer] [facility], [facility]. 07-30-2021 08:06-0400 Body weight 152.41 kg Justine Cervantes LPN [facility], [facility].; [place] [employer] [facility], [facility]. 07-30-2021 08:06-0400 Diastolic blood pressure 91 mm[Hg] Justine Cervantes LPN [facility], [facility].; [employer] Comment on above: Patient Position: Sitting; Cuff Location : Right Arm; Cuff Size: Standard 07-30-2021 08:06-0400 Heart rate 106 /min Justine Cervantes LPN [facility], [facility].; [employer], [employer]. Comment on above: Pattern: Regular 07-30-2021 08:06-0400 Systolic blood pressure 165 mm[Hg] Justine Cervantes LPN [facility], [facility].; [employer] Comment on above: Patient Position: Sitting; Cuff Location : Right Arm; Cuff Size: Standard 06-29-2021 10:04-0500 Body height 185.42 cm Justine Cervantes LPN [facility], [facility].; [place] [employer] [facility], [facility]. 06-29-2021 10:04-0500 Body mass index (BMI) [Ratio] 44.33 kg/m2 Justine Cervantes [facility] [place] [employer] [facility], [facility]. 06-29-2021 10:04-0500 Body surface area Derived from formula 2.68 m2 Justine Cervantes COM[employer] [facility], [facility].; [place] [employer] [facility], [facility]. 06-29-2021 10:04-0500 Body weight 152.[address] [facility], [facility].; [place] [employer] [facility], [facility]. 06-29-2021 10:04-0500 Diastolic blood pressure 82 mm[Hg] Justine Cervantes [facility], [facility].; [employer], [employer]. Comment on above: Patient Position: Sitting; Cuff Location : Right Arm; Cuff Size: Standard 06-29-2021 10:04-0500 Heart rate 80 /min Justine Cervantes [facility], [facility].; [employer]. Comment on above: Pattern: Regular 06-29-2021 10:04-0500 Systolic blood pressure 129 mm[Hg] Justine Cervantes [facility], [facility].; [employer], [employer]. Comment on above: Patient Position: Sitting; Cuff Location : Right Arm; Cuff Size: Standard 06-02-2021 10:34-0500 Body height 185.42 cm Justine Cervantes LPN [facility], [facility].; [employer], [employer]. 06-02-2021 10:34-0500 Body mass index (BMI) [Ratio] 44.33 kg/m2 Justine Cervantes [facility], [facility].; [employer], [employer]. 06-02-2021 10:34-0500 Body surface area Derived from formula 2.68 m2 Justine Cervantes COM[employer] W[employer] [facility], [facility].; [employer], [employer]. 06-02-2021 10:34-0500 Body weight 152.41 kg Justine Cervantes LPN [facility], [facility].; [employer] [facility]. 06-02-2021 10:34-0500 Diastolic blood pressure 76 mm[Hg] Justine Cervantes LPN [facility], [facility].; [place] [employer]. Comment on above: Patient Position: Sitting; Cuff Location : Left Arm; Cuff Size: Standard 06-02-2021 10:34-0500 Heart rate 91 /min Justine Cervantes LPN [facility], [facility].; [place] [employer]. Comment on above: Pattern: Regular 06-02-2021 10:34-0500 Systolic blood pressure 126 mm[Hg] Justine Cervantes LPN [facility], [facility].; [employer] Comment on above: Patient Position: Sitting; Cuff Location : Left Arm; Cuff Size: Standard 2020 08:36-0500 Body height 185.42 cm Laureljennjuan Flores LPN [facility], [facility].; [place] [employer]. 2020 08:36-0500 Body mass index (BMI) [Ratio] 44.99 kg/m2 Monserrat Flores [facility], [facility].; [place] [employer], [facility]. 2020 08:36-0500 Body surface area Derived from formula 2.7 m2 Monserrat Flores COM[employer] [facility], [facility].; [place] [employer] [facility], [facility]. 2020 08:36-0500 Body temperature 98.7 [degF] Monserrat Rachel Sandra COM[employer] W[employer]DER [facility], [facility].; [employer] Comment on above: Method: Tympanic 2020 08:36-0500 Body weight 154.68 kg Laureljennjuan Flores COM[employer] [facility], [facility].; [employer] 2020 08:36-0500 Diastolic blood pressure 93 mm[Hg] Neilee Rachel Flores COM[employer] [facility], [facility].; [employer] Comment on above: Patient Position: Sitting; Cuff Location : Right Arm; Cuff Size: Standard 2020 08:36-0500 Heart rate 128 /min Jaceye Rachel Flores COM[employer]DER [facility], [facility].; [employer] Comment on above: Pattern: Regular 2020 08:36-0500 Systolic blood pressure 146 mm[Hg] Neilee L Vess COM[employer]DER [place] [employer] [facility], [facility].; [employer] Comment on above: Patient Position: Sitting; Cuff Location : Right Arm; Cuff Size: Standard 06-11-2019 10:55-0500 Body height 185.42 cm Neilee L Vess [employer] [place] [employer], Inc[employer], [employer]. 06-11-2019 10:55-0500 Body mass index (BMI) [Ratio] 41.29 kg/m2 Neilee L Vess [employer] [place] [employer] [facility], [facility].; [employer], [employer]. 06-11-2019 10:55-0500 Body surface area Derived from formula 2.6 m2 Neilee L Vess [employer] [place] [employer] [facility], [facility].; [employer], [employer]. 06-11-2019 10:55-0500 Body temperature 99.1 [degF] Neilee L Vess [employer], [employer].; [employer]. Comment on above: Method: Tympanic 06-11-2019 10:55-0500 Body weight 141.98 kg Neilee L Vess [employer] [place] [employer] [facility], [facility].; [employer], [employer]. 06-11-2019 10:55-0500 Diastolic blood pressure 82 mm[Hg] Neilee L Vess [employer], [facility].; [employer], [employer]. Comment on above: Patient Position: Sitting; Cuff Location : Right Arm; Cuff Size: Standard 06-11-2019 10:55-0500 Heart rate 100 /min Neilee L Vess COM[employer] [facility], Inc.; [employer]. Comment on above: Pattern: Regular 06-11-2019 10:55-0500 Inhaled oxygen concentration 20 % Neilee L Vess COM[employer]DER [employer] [facility], [employer].; [employer]. Comment on above: Room air 06-11-2019 10:55-0500 Inhaled oxygen concentration 21 % Neilee L Vess [employer], [employer].; [employer]. Comment on above: Room air 06-11-2019 10:55-0500 SaO2% (BldA) [Mass fraction] 98 % Neilee L Vess COM[employer] [facility] [employer], [employer]. 06-11-2019 10:55-0500 Systolic blood pressure 146 mm[Hg] Monserrat Flores COM[employer] W[employer]DER [place] [employer] [facility], [facility].; [employer], [employer]. Comment on above: Patient Position: Sitting; Cuff Location : Right Arm; Cuff Size: Standard 01-12-2019 08:13-0400 Body height 185.42 cm Leslye Wearabella OLIVIER [place] [employer] [facility], Inc.; [employer] 01-12-2019 08:13-0400 Body mass index (BMI) [Ratio] 41.82 kg/m2 Leslye Wearabella [facility] [employer] [facility], Inc.; [employer], [employer]. 01-12-2019 08:130400 Body surface area Derived from formula 2.62 m2 Leslye Akiraarabella OLIVIER [place] [employer] [facility], Inc.; [employer], [employer]. 01-12-2019 08:13-0400 Body temperature 98 [degF] Leslye Wearabella [facility] [employer], [employer], [employer]. Comment on above: Method: Tympanic 01-12-2019 08:13-0400 Body weight 143.79 kg Leslye [facility] [employer] [facility], Inc.; [employer], [employer] 01-12-2019 08:13-0400 Diastolic blood pressure 84 mm[Hg] Leslye Wearabella [facility] [employer] [facility], Inc.; [employer] Comment on above: Patient Position: Sitting; Cuff Location : Left Arm; Cuff Size: Standard 01-12-2019 08:13-0400 Heart rate 99 /min Leslye Akiraarabella OLIVIER [place] [employer], [employer], [employer]. Comment on above: Pattern: Regular 01-12-2019 08:13-0400 Inhaled oxygen concentration 20 % Leslye Foster LPN [place] [employer], [employer], [employer]. Comment on above: Room air 01-12-2019 08:13-0400 Inhaled oxygen concentration 21 % Leslye Foster LPN [place] [employer], [employer].; [employer]. Comment on above: Room air 01-12-2019 08:13-0400 SaO2% (BldA) [Mass fraction] 98 % Leslye Foster LPN [employer]. 01-12-2019 08:13-0400 Systolic blood pressure 129 mm[Hg] Leslye Foster LPN [employer]. Comment on above: Patient Position: Sitting; Cuff Location : Left Arm; Cuff Size: Standard 07-20-2016 16:35-0400 Body height 185.42 cm Luke Alicia PA-C Work Phone: [employer]. 07-20-2016 16:35-0400 Body mass index (BMI) [Ratio] 38.52 kg/m2 Luke Alicia PA-C Work Phone: [employer].; [employer] 07-20-2016 16:35-0400 Body surface area Derived from formula 2.53 m2 Luke Alicia PA-C Work Phone: [employer].; [employer] 07-20-2016 16:35-0400 Body weight 132.45 kg Luke Alicia PA-C Work Phone: [employer].; [employer] 07-20-2016 16:35-0400 Diastolic blood pressure 83 mm[Hg] Luke Alicia PA-C Work Phone: [employer]. Comment on above: Patient Position: Sitting; Cuff Location : Left Arm; Cuff Size: Standard 07-20-2016 16:35-0400 Heart rate 96 /min Luke Alicia PA-C Work Phone: [employer].; [employer]. Comment on above: Pattern: Regular 07-20-2016 16:35-0400 Systolic blood pressure 130 mm[Hg] Luke Alicia PA-C Work Phone: [place] [employer].; [employer]. Comment on above: Patient Position: Sitting; Cuff Location : Left Arm; Cuff Size: Standard 02-27-2016 09:35-0400 Body height 185.42 cm Leslye Mcdanielmarisolaydee SOY [place] [employer] [facility], Inc.; [employer] 02-27-2016 09:35-0400 Body mass index (BMI) [Ratio] 38 kg/m2 Leslye W[facility]abella [facility] [employer] [facility], [employer].; [employer] 02-27-2016 09:35-0400 Body surface area Derived from formula 2.51 m2 Leslye Championarabella [employer] [place] [employer] [facility], [employer].; [employer] 02-27-2016 09:35-0400 Body temperature 98.4 [degF] Leslye Championarabella [facility] [employer], [employer].; [employer]. Comment on above: Method: Tympanic 02-27-2016 09:35-0400 Body weight 130.64 kg Leslye Wearabella OLIV[employer] [place] [employer] [facility], [employer].; [employer] 02-27-2016 09:35-0400 Diastolic blood pressure 82 mm[Hg] Leslye Championarabella [facility] [employer] [facility], [employer].; [employer] Comment on above: Patient Position: Sitting; Cuff Location : Left Arm; Cuff Size: Standard 02-27-2016 09:35-0400 Heart rate 99 /min Leslye Kristin OLIVIER [place] [employer] [facility], [employer].; [employer] Comment on above: Pattern: Regular 02-27-2016 09:35-0400 Inhaled oxygen concentration 20 % Leslyekevin Foster LPN [place] [employer], [employer] Comment on above: Room air 02-27-2016 09:35-0400 Inhaled oxygen concentration 21 % Leslye Foster LPN [place] [employer] [facility], Inc.; [employer]. Comment on above: Room air 02-27-2016 09:35-0400 SaO2% (BldA) [Mass fraction] 96 % Leslye Foster LPN [employer]. 02-27-2016 09:35-0400 Systolic blood pressure 132 mm[Hg] Leslye Foster LPN [employer]. Comment on above: Patient Position: Sitting; Cuff Location : Left Arm; Cuff Size: Standard 01-28-2016 15:39-0400 Body height 185.42 cm Shaina Lujan RN [employer]. 01-28-2016 15:39-0400 Body mass index (BMI) [Ratio] 38.92 kg/m2 Shaina Lujan RN [employer]. 01-28-2016 15:39-0400 Body surface area Derived from formula 2.54 m2 Shaina Lujan RN [employer]. 01-28-2016 15:39-0400 Body temperature 97.4 [degF] Shaina Lujan RN [employer]. Comment on above: Method: Tympanic 01-28-2016 15:39-0400 Body weight 133.81 kg Shaina Lujan RN [employer]. 01-28-2016 15:39-0400 Diastolic blood pressure 70 mm[Hg] Shaina Lujan RN [employer]. Comment on above: Patient Position: Sitting; Cuff Location : Left Arm; Cuff Size: Standard 01-28-2016 15:39-0400 Heart rate 80 /min Shaina Lujan RN [employer]. Comment on above: Pattern: Regular 01-28-2016 15:39-0400 Systolic blood pressure 129 mm[Hg] Shaina Lujan RN [employer]. Comment on above: Patient Position: Sitting; Cuff Location : Left Arm; Cuff Size: Standard 09-12-2014 11:21-0400 Body height 185.42 cm Shaina Lujan RN [employer]. 09-12-2014 11:21-0400 Body mass index (BMI) [Ratio] 36.94 kg/m2 Shaina Lujan RN [employer]. 09-12-2014 11:21-0400 Body surface area Derived from formula 2.48 m2 Shaina Lujan RN [place] [employer].; [employer]. 09-12-2014 11:21-0400 Body temperature 97.8 [degF] Shaina Lujan RN [employer]. Comment on above: Method: Tympanic 09-12-2014 11:21-0400 Body weight 127.01 kg Shaina Lujan RN [employer]. 09-12-2014 11:21-0400 Diastolic blood pressure 75 mm[Hg] Shaina Lujan RN [employer]. Comment on above: Patient Position: Sitting; Cuff Location : Left Arm; Cuff Size: Standard 09-12-2014 11:21-0400 Heart rate 68 /min Shaina Lujan RN [employer]. Comment on above: Pattern: Regular 09-12-2014 11:21-0400 Systolic blood pressure 132 mm[Hg] Shaina Lujan RN [employer]. Comment on above: Patient Position: Sitting; Cuff Location : Left Arm; Cuff Size: Standard 01-14-2014 16:38-0400 Body height 185.42 cm Ankit [employer] Work Phone: [employer]. 01-14-2014 16:38-0400 Body mass index (BMI) [Ratio] 38.79 kg/m2 Ankit [employer] Work Phone: [employer]. 01-14-2014 16:38-0400 Body surface area Derived from formula 2.53 m2 Ankit Wipit PA-C Work Phone: [employer]; [employer]. 01-14-2014 16:38-0400 Body weight 133.36 kg Luke Alicia PA-C Work Phone: [employer]. 01-14-2014 16:38-0400 Diastolic blood pressure 70 mm[Hg] Luke Alicia PA-C Work Phone: [employer]. Comment on above: Patient Position: Sitting; Cuff Location : Left Arm; Cuff Size: Large 01-14-2014 16:38-0400 Heart rate 81 /min Luke Alicia PA-C Work Phone: [employer]. Comment on above: Pattern: Regular 01-14-2014 16:38-0400 Systolic blood pressure 127 mm[Hg] Luke Alicia PA-C Work Phone: [employer]. Comment on above: Patient Position: Sitting; Cuff Location : Left Arm; Cuff Size: Large 12-19-2013 17:31-0400 Body weight 133.36 kg Neilee L Vess COMBO WELDER [employer]. 12-19-2013 17:31-0400 Diastolic blood pressure 82 mm[Hg] Neilee L Vess [employer]BO W[employer].; [employer] Comment on above: Patient Position: Sitting; Cuff Location : Right Arm; Cuff Size: Standard 12-19-2013 17:31-0400 Heart rate 89 /min Neilee L Vess COMBO W[employer]DER [employer]. Comment on above: Pattern: Regular 12-19-2013 17:31-0400 Systolic blood pressure 139 mm[Hg] Neilee L Vess COMBO WELDER [employer]. Comment on above: Patient Position: Sitting; Cuff Location : Right Arm; Cuff Size: Standard 02-01-2013 09:57-0400 Body height 185.42 cm Shaina Lujan RN [employer]. 02-01-2013 09:57-0400 Body mass index (BMI) [Percentile] Per age and sex 99 % Shaina Lujan RN [employer]. 02-01-2013 09:57-0400 Body mass index (BMI) [Ratio] 36.18 kg/m2 Shaina Lujan RN [employer]. 02-01-2013 09:57-0400 Body surface area Derived from formula 2.46 m2 Shaina Lujan RN [employer]. 02-01-2013 09:57-0400 Body temperature 101 [degF] Shaina Lujan RN [employer]. Comment on above: Method: Tympanic 02-01-2013 09:57-0400 Body weight 124.38 kg Shaina Lujan RN [employer]. 02-01-2013 09:57-0400 Diastolic blood pressure 66 mm[Hg] Shaina Lujan RN [employer]. Comment on above: Patient Position: Sitting; Cuff Location : Left Arm; Cuff Size: Standard 02-01-2013 09:57-0400 Heart rate 109 /min Shaina Lujan RN [employer]. Comment on above: Pattern: Regular 02-01-2013 09:57-0400 Inhaled oxygen concentration 20 % Shaina Lujan RN [employer]. Comment on above: Room air 02-01-2013 09:57-0400 Inhaled oxygen concentration 21 % Shaina Lujan RN [employer]. Comment on above: Room air 02-01-2013 09:57-0400 SaO2% (BldA) [Mass fraction] 97 % Shaina Lujan RN [employer]. 02-01-2013 09:57-0400 Systolic blood pressure 121 mm[Hg] Shaina Lujan RN [employer]. Comment on above: Patient Position: Sitting; Cuff Location : Left Arm; Cuff Size: Standard 08-25-2012 10:41-0400 Body temperature 98.7 [degF] Arajohn Hernandez SOY [facility].; [employer] 08-25-2012 10:41-0400 Body weight 126.1 kg Ara Hernandez LPN [facility] [employer], [employer]. 08-25-2012 10:41-0400 Diastolic blood pressure 76 mm[Hg] Ara E David OLIVIER [facility], [facility].; [employer]. Comment on above: Patient Position: Sitting; Cuff Location : Left Arm; Cuff Size: Standard 08-25-2012 10:41-0400 Heart rate 98 /min Ara Hernandez COMBO WELDER [facility], [facility].; [employer], [employer]. Comment on above: Pattern: Regular 08-25-2012 10:41-0400 Systolic blood pressure 124 mm[Hg] Ara E David [facility], [employer].; [employer], [employer]. Comment on above: Patient Position: Sitting; Cuff Location : Left Arm; Cuff Size: Standard 04-05-2011 09:29-0500 Body height 185.42 cm Antonette Flory COMBO WELDER Work Phone: [employer]. 04-05-2011 09:29-0500 Body mass index (BMI) [Percentile] Per age and sex 100 % [employer]etteAngiologix COMBO WELDER Work Phone: [employer]. 04-05-2011 09:29-0500 Body mass index (BMI) [Ratio] 38.52 kg/m2 [employer]giologix COMBO WELDER Work Phone: [employer] 04-05-2011 09:29-0500 Body surface area Derived from formula 2.53 m2 Antonette Flory COMBO WELDER Work Phone: [employer]. 04-05-2011 09:29-0500 Body temperature 98.9 [degF] Antonette Flory COMBO WELDER Work Phone: [employer]. Comment on above: Method: Tympanic 04-05-2011 09:29-0500 Body weight 132.45 kg Antonette Ruth LPN Work Phone: [employer]. 09-17-2010 15:08-0400 Body height 182.88 cm Shaina Lujan RN [employer]. 09-17-2010 15:08-0400 Body mass index (BMI) [Percentile] Per age and sex 100 % Shaina Lujan RN [employer]. 09-17-2010 15:08-0400 Body mass index (BMI) [Ratio] 38.73 kg/m2 Shaina Lujan RN [employer]. 09-17-2010 15:08-0400 Body surface area Derived from formula 2.48 m2 Shaina Lujan RN [employer]. 09-17-2010 15:08-0400 Body temperature 98.1 [degF] Shaina Lujan RN [employer]. Comment on above: Method: Tympanic 09-17-2010 15:08-0400 Body weight 129.55 kg Shaina Lujan RN [employer]. 09-17-2010 15:08-0400 Diastolic blood pressure 73 mm[Hg] Shaina Lujan RN [employer]. Comment on above: Patient Position: Sitting; Cuff Location : Left Arm; Cuff Size: Standard 09-17-2010 15:08-0400 Heart rate 92 /min Shaina Lujan RN [employer]. Comment on above: Pattern: Regular 09-17-2010 15:08-0400 Systolic blood pressure 135 mm[Hg] Shaina Lujan RN [employer]. Comment on above: Patient Position: Sitting; Cuff Location : Left Arm; Cuff Size: Standard Encounters Encounter Date Encounter Type Care Provider Facility Start: 03-07-2025 End: 03-07-2025 [facility] Start: 11-29-2024 End: 11-29-2024 Office outpatient visit 15 minutes Luke Alicia PA-C Work Phone: [employer]. Start: 10-10-2024 End: 10-10-2024 Medication Luke Alicia PA-C Work Phone: [employer]. Start: 09-25-2024 End: 09-25-2024 Office outpatient visit 15 minutes Luke Alicia PA-C Work Phone: [employer]. Start: 07-04-2024 End: 07-04-2024 Orders Luke Alicia PA-C Work Phone: [employer]. Start: 06-28-2024 End: 06-28-2024 [facility] Start: 06-20-2024 End: 06-20-2024 Orders Luke Alicia PA-C Work Phone: [employer]. Start: 06-20-2024 End: 06-20-2024 Orders Luke Alicia PA-C Work Phone: [employer] Start: 04-11-2024 End: 04-11-2024 [facility] Start: 04-11-2024 End: 04-11-2024 Orders Luke Alicia PA-C Work Phone: [employer]. Start: 03-23-2024 End: 03-23-2024 Orders Luke Alicia PA-C Work Phone: [employer] Start: 03-05-2024 End: 03-05-2024 Office outpatient visit 25 minutes Luke Alicia PA-C Work Phone: [employer] Start: 03-05-2024 Review Luke Hochstetl er PA-C Work Phone: [employer] Start: 08-24-2023 End: 08-24-2023 Medication Luke Alicia PA-C Work Phone: [employer] Start: 08-19-2023 End: 08-19-2023 Orders Luke Alicia PA-C Work Phone: [employer] Start: 08-05-2023 End: 08-05-2023 Patient encounter procedure Luke Alicia PA-C Work Phone: [place] [employer] [facility] Start: 05-17-2023 End: 05-17-2023 Orders Luke Alicia PA-C Work Phone: [employer] Start: 05-12-2023 End: 05-12-2023 Orders Luke Alicia PA-C Work Phone: [employer] Start: 05-03-2023 End: 05-03-2023 Periodic preventive med est patient 18-39 yrs Luke Alicia PA-C Work Phone: [employer] Start: 05-03-2023 End: 05-03-2023 Physical examination Ankit E Alicia PA-C Work Phone: [employer]. Start: 05-03-2023 Review Luke Hochstetl er PA-C Work Phone: [employer] Start: 04-13-2022 End: 04-13-2022 Office outpatient visit 15 minutes Luke Alicia PA-C Work Phone: [employer] Start: 09-25-2021 End: 09-25-2021 Office outpatient visit 15 minutes Luke Alicia PA-C Work Phone: [employer] Start: 07-30-2021 End: 07-30-2021 Office outpatient visit 15 minutes Luke Alicia PA-C Work Phone: [employer]. Start: 07-23-2021 End: 07-23-2021 Orders Luke Alicia PA-C Work Phone: [employer]. Start: 07-15-2021 End: 07-15-2021 Orders Luke Alicia PA-C Work Phone: [employer]. Start: 06-29-2021 End: 06-29-2021 Office outpatient visit 15 minutes Luke Alicia PA-C Work Phone: [employer]. Start: 06-02-2021 End: 06-02-2021 Office outpatient visit 25 minutes Luke Alicia PA-C Work Phone: [employer]. Start: 06-19-2020 End: 06-20-2020 Medication Luke Alicia PA-C Work Phone: [employer]. Start: 06-11-2020 End: 06-11-2020 Orders Luke Alicia PA-C Work Phone: [employer]. Start: 2020 End: 2020 Office outpatient visit 15 minutes Luke Alicia PA-C Work Phone: [employer] Start: 06-11-2019 End: 06-11-2019 Office outpatient visit 15 minutes Luke Alicia PA-C Work Phone: [employer]. Start: 01-12-2019 End: 01-12-2019 Office outpatient visit 15 minutes Luke Alicia PA-C Work Phone: [employer] Start: 07-20-2016 End: 07-20-2016 Office outpatient visit 15 minutes Luke Alicia PA-C Work Phone: [employer]. Start: 02-27-2016 End: 02-27-2016 Patient encounter procedure Luindia LozanoAlicia PA-C Work Phone: [employer]. Start: 01-28-2016 End: 01-28-2016 Patient encounter procedure Buffy Rodriguez PA-C Work Phone: [employer] Start: 01-26-2016 End: 01-26-2016 Historical Summary Christinaindia LozanoAlicia PA-C Work Phone: [employer]. Start: 12-25-2014 End: 12-31-2014 Orders Luke Alicia PA-C Work Phone: [employer]. Start: 12-20-2014 End: 12-23-2014 Medication Luke Alicia PA-C Work Phone: [employer]. Start: 09-13-2014 End: 09-13-2014 Orders Luke Alicia PA-C Work Phone: [employer]. Start: 09-12-2014 End: 09-12-2014 Patient encounter procedure Luke Alicia PA-C Work Phone: [employer]. Start: 01-14-2014 End: 01-15-2014 Patient encounter procedure Luke Alicia PA-C Work Phone: [employer]. Start: 12-19-2013 End: 12-20-2013 Patient encounter procedure Luke Alicia PA-C Work Phone: [employer]. Start: 02-01-2013 End: 02-01-2013 Patient encounter procedure Luke Alicia PA-C Work Phone: [employer]. Start: 08-25-2012 End: 08-25-2012 Patient encounter procedure Luke Alicia PA-C Work Phone: [employer]. Start: 04-05-2011 End: 04-05-2011 Patient encounter procedure Ankit Vargas PA-C Work Phone: [facility] Start: 09-17-2010 End: 09-17-2010 Patient encounter procedure Ankit Vargas PA-C Work Phone: [facility] Start: 09-17-2010 End: 09-17-2010 Routine general medical examination at a health care facility Buffyfrancisco DONALD-C Work Phone: [facility]; [facility] Start: 09-16-2010 End: 09-16-2010 Historical Summary Ankit Vargas PA-C Work Phone: [facility] Procedures Date Procedure Procedure Detail Performing Clinician Start: 06-20-2024 End: 07-04-2024 Mri lower extrem oth/thn jt w/o contr matrl Ankit Lozanoetler PA-C Work Phone: Start: 04-11-2024 End: 04-12-2024 Radex hip unilateral with pelvis 2-3 views Ankit Sainzstetler PA-C Work Phone: Start: 05-03-2023 End: 05-03-2023 Depression screening Christinake Juan SainzAlicia PA-C Work Phone: Start: 05-03-2023 End: 05-03-2023 Scr dep neg, no plan reqd Ankit Mcmullen tler PA-C Work Phone: Start: 07-30-2021 End: 07-30-2021 Destruction benign lesions up to 14 Luke E Alicia PA-C Work Phone: Start: 07-23-2021 End: 09-08-2021 Polysom 6/>yrs sleep w/cpap 4/> addl nury attnd Christinake Juan SainzAlicia PA-C Work Phone: Start: 06-29-2021 End: 06-29-2021 Destruction benign lesions up to 14 Luke E Alicia PA-C Work Phone: Start: 06-02-2021 End: 06-02-2021 Destruction benign lesions up to 14 Ankit Vargas PA-C Work Phone: Start: 06-11-2020 End: 06-19-2020 Hepatobil syst imag inc gb w/pharma intervenj Buffy Rodriguez PA-C Work Phone: Start: 2020 End: 06-11-2020 Us abdominal real time w/image limited Buffy Rodriguez PA-C Work Phone: Start: 12-30-2014 End: 07-22-2015 Polysom 6/>yrs sleep w/cpap 4/> addl nury attnd Buffy Rodriguez PA-C Work Phone: Start: 09-12-2014 End: 09-12-2014 Lab findings surveillance Rommel GARCIA Comment on above: 89 Start: 09-12-2014 End: 12-31-2014 Polysom 6/>yrs sleep w/cpap 4/> addl nury attnd Buffy Rodriguez PA-C Work Phone: Comment on above: clincal symptoms: el evated blood pressure, witnessed apnea, obesity, headaches, snoring, fatigue Start: 09-12-2014 End: 07-22-2015 Xtrnl ecg & 48 hr record scan stor w/r&i Buffy Rodriguez PA-C Work Phone: Start: 05-02-2002 End: 05-02-2002 Appendectomy Rommel Espinoza LPN Comment on above: [facility] Start: 05-02-2001 End: 05-02-2001 Tonsillectomy Rommel Espinoza LPN Comment on above: [facility] Plan of Treatment Date Care Activity Detail Author Start: 02-06-2025 Patient encounter procedure Medical; RTN OFFICE VISIT - 2-3 mo rtn [employer] Start: 06-Feb-2025 11:00-04:00 DARRELL Vargas Appointment Request [employer] Start: 11-29-2024 Patient encounter procedure Medical; EXTENDED RTN - 2 mo f/u [place] [employer]. Start: 29-Nov-2024 13:30-04:00 DARRELL Vargas Appointment Request [employer] Start: 09-25-2024 Patient encounter procedure Medical; EXTENDED RTN - [facility] said [facility] Start: 25-Sep-2024 13:30-04:00 DARRELL Vargas Appointment Request [employer] Start: 06-20-2024 Mri lower extrem oth /thn jt w/o contr matrl [employer] Start: 04-11-2024 Radex hip unilateral with pelvis 2-3 views Hip/pelvis x-ray, left ([id number]) Start: 11-Apr-2024 Intent [employer] Start: 08-19-2023 Lipid panel LIPID PANEL ([id number]) Start: 19-Aug-2023 Request [employer]. Start: 08-15-2023 Lipid panel LIPID PANEL ([id number]) Start: 15-Aug-2023 Request [employer], [employer]. Start: 05-13-2023 Comprehensive metabo lic panel [facility].; [employer], [employer]. Start: 05-13-2023 [facility] [employer], [employer]. Start: 05-13-2023 Nursing evaluation o f patient and report Medical; [facility] Start: 13-May-2023 9:30 NURSE, FLOAT Appointment Request [employer] Start: 07-15-2021 Polysom 6/>yrs sleep w/cpap 4/> addl nury attnd CPAP Titration Start: 15-Jul-2021 Intent [employer]. Immunizations Immunization Date Immunization Notes Care Provider Junito rutledge 06-30-2010 tetanus and diphther ia toxoids, adsorbed, preservative free, for adult use (2 Lf of tetanus toxoid and 2 Lf of diphtheria toxoid) Luke Alicia PA-C [facility] Phone: [facility] 06-23-1999 hepatitis B vaccine, pediatric or pediatric/adolescent dosage Luke Alicia PA-C Work Phone: [facility] 01-27-1999 measles, mumps and rubella virus vaccine Luke Alicia PA-C Work Phone: [facility] 01-19-1999 hepatitis B vaccine, pediatric or pediatric/adolescent dosage Luke Alicia PA-C Work Phone: [facility] 12-19-1998 hepatitis B vaccine, pediatric or pediatric/adolescent dosage Luke Alicia PA-C Work Phone: [facility] 07-23-1998 diphtheria, tetanus toxoids and acellular pertussis vaccine Luke Alicia PA-C Work Phone: [facility] 07-23-1998 poliovirus vaccine, inactivated Luke Alicia PA-C Work Phone: [facility] 12-28-1994 diphtheria, tetanus toxoids and acellular pertussis vaccine Luke Alicia PA-C Work Phone: [facility] 09-15-1994 haemophilus influenz ae type b vaccine, PRP-T conjugate Luke Alicia PA-C Work Phone: [facility]. 09-15-1994 measles, mumps and rubella virus vaccine Luke Alicia PA-C Work Phone: [facility].; [facility] 1993 diphtheria, tetanus toxoids and acellular pertussis vaccine Luke Alicia PA-C Work Phone: [facility].; [facility] 1993 haemophilus influenz ae type b vaccine, PRP-T conjugate Luke Alicia PA-C Work Phone: [facility].; [facility] 1993 poliovirus vaccine, inactivated Luke Alicia PA-C Work Phone: [facility].; [facility] 1993 diphtheria, tetanus toxoids and acellular pertussis vaccine Luke Alicia PA-C Work Phone: [facility].; [facility] 1993 haemophilus influenz ae type b vaccine, PRP-T conjugate Luke Alicia PA-C Work Phone: [facility].; [facility] 1993 poliovirus vaccine, inactivated Luke Alicia PA-C Work Phone: [facility] 1993 diphtheria, tetanus toxoids and acellular pertussis vaccine Luke Alicia PA-C Work Phone: [facility] 1993 haemophilus influenz ae type b vaccine, PRP-T conjugate Luke Alicia PA-C Work Phone: [facility] 1993 poliovirus vaccine, inactivated Luke Alicia PA-C Work Phone: [facility] Payers Date Payer Category Payer Unknown [id number] 1993 Unknown [id number] 1993 Unknown [id number] Unknown Unknown [id number] Social History Date Type Detail Facility Alcohol Use: Alcohol Use: ; [facility]as[facility]; [employer] Caffeine Use Caffeine Use [facility]; [employer] Tobacco Use: Tobacco Use: ; L ight tobacco smoker. [place] [employer] [facility]; [employer] End: 06-11-2019 Tobacco/Smoke Exposure: Tobacco/Smoke Exposure: ; Family members smoke outdoors only. Status: Inactive as of 11-Jun-2019 [place] [employer] [facility]; [employer] Male [facility]; [employer] Work Phone: Occasional alcohol use [facility]; [employer] Work Phone: Never smoked tobacco [place] [employer] [facility]; [employer] Work Phone: Light tobacco smoker [employer]; [employer] Work Phone: Family History No Family History Records Found Hypertension Status:Active Comments:Materna l Grandmother. Hypothyroidism Status:Active Comments:Materna l Grandmother. Hypertension Status:Active Comments:Materna l Grandmother. Hypothyroidism Status:Active Comments:Materna l Grandmother. Hypertension Status:Active Comments:Materna l Grandmother. Hypothyroidism Status:Active Comments:Materna l Grandmother. Hypertension Status:Active Comments:Materna l Grandmother. Hypothyroidism Status:Active Comments:Materna l Grandmother. Hypertension Status:Active Comments:Materna l Grandmother. Hypothyroidism Status:Active Comments:Materna l Grandmother. Hypertension Status:Active Comments:Materna l Grandmother. Hypothyroidism Status:Active Comments:Materna l Grandmother. Hypertension Status:Active Comments:Materna l Grandmother. Hypothyroidism Status:Active Comments:Materna l Grandmother. Hypertension Status:Active Comments:Materna l Grandmother. Hypothyroidism Status:Active Comments:Materna l Grandmother. Hypertension Status:Active Comments:Materna l Grandmother. Hypothyroidism Status:Active Comments:Materna l Grandmother. Hypertension Status:Active Comments:Materna l Grandmother. Hypothyroidism Status:Active Comments:Materna l Grandmother. Hypertension Status:Active Comments:Materna l Grandmother. Hypothyroidism Status:Active Comments:Materna l Grandmother. Hypertension Status:Active Comments:Materna l Grandmother. Hypothyroidism Status:Active Comments:Materna l Grandmother. Hypertension Status:Active Comments:Materna l Grandmother. Hypothyroidism Status:Active Comments:Materna l Grandmother. Hypertension Status:Active Comments:Materna l Grandmother. Hypothyroidism Status:Active Comments:Materna l Grandmother. Hypertension Status:Active Comments:Materna l Grandmother. Hypothyroidism Status:Active Comments:Materna l Grandmother. Hypertension Status:Active Comments:Materna l Grandmother. Hypothyroidism Status:Active Comments:Materna l Grandmother. Hypertension Status:Active Comments:Materna l Grandmother. Hypothyroidism Status:Active Comments:Materna l Grandmother. Hypertension Status:Active Comments:Materna l Grandmother. Hypothyroidism Status:Active Comments:Materna l Grandmother. Hypertension Status:Active Comments:Materna l Grandmother. Hypothyroidism Status:Active Comments:Materna l Grandmother. Hypertension Status:Active Comments:Materna l Grandmother. Hypothyroidism Status:Active Comments:Materna l Grandmother. Hypertension Status:Active Comments:Materna l Grandmother. Hypothyroidism Status:Active Comments:Materna l Grandmother. Hypertension Status:Active Comments:Materna l Grandmother. Hypothyroidism Status:Active Comments:Materna l Grandmother. Hypertension Status:Active Comments:Materna l Grandmother. Hypothyroidism Status:Active Comments:Materna l Grandmother. Hypertension Status:Active Comments:Materna l Grandmother. Hypothyroidism Status:Active Comments:Materna l Grandmother. Hypertension Status:Active Comments:Materna l Grandmother. Hypothyroidism Status:Active Comments:Materna l Grandmother. Hypertension Status:Active Comments:Materna l Grandmother. Hypothyroidism Status:Active Comments:Materna l Grandmother. Hypertension Status:Active Comments:Materna l Grandmother. Hypothyroidism Status:Active Comments:Materna l Grandmother. Hypertension Status:Active Comments:Materna l Grandmother. Hypothyroidism Status:Active Comments:Materna l Grandmother. Hypertension Status:Active Comments:Materna l Grandmother. Hypothyroidism Status:Active Comments:Materna l Grandmother. Hypertension Status:Active Comments:Materna l Grandmother. Hypothyroidism Status:Active Comments:Materna l Grandmother. Hypertension Status:Active Comments:Materna l Grandmother. Hypothyroidism Status:Active Comments:Materna l Grandmother. Hypertension Status:Active Comments:Materna l Grandmother. Hypothyroidism Status:Active Comments:Materna l Grandmother. Hypertension Status:Active Comments:Materna l Grandmother. Hypothyroidism Status:Active Comments:Materna l Grandmother. Hypertension Status:Active Comments:Materna l Grandmother. Hypothyroidism Status:Active Comments:Materna l Grandmother. Hypertension Status:Active Comments:Materna l Grandmother. Hypothyroidism Status:Active Comments:Materna l Grandmother. Hypertension Status:Active Comments:Materna l Grandmother. Hypothyroidism Status:Active Comments:Materna l Grandmother. Summary Purpose Advance Directives No Advanced Directives Records FoundNo Advanced Directives Records Found Additional Source Comments (unrecognized sect ion and content) No Status Records FoundNo Status Records Found INFORMATION SOURCE (unrecogn ized section and content) DATE CREATED AUTHOR 03/03/2025 [facility] DATE CREATED AUTHOR AUTHOR'S ORGANIZ ATION 03/08/2025 [facility] FOR RECORDS PERTAINING TO PATIENTS WHO ARE OR HAVE BEEN ENROLLED IN A CHEMICAL DEPENDENCY/SUBSTANCEABUSE PROGRAM, SOME INFORMATION MAY BE OMITTED. This clinical summary was aggregated from multiple sources. Caution should be exercised in using it in the provision of clinical care. This summary normalizes information from multiple sources, and as a consequence, information in this document may materially change the coding, format and clinical context of patient data. In addition, data may be omitted in some cases. CLINICAL DECISIONS SHOULD BE BASED ON THE PRIMARY CLINICAL RECORDS. [employer] provides no warranty or guarantee of the accuracy or completeness of information in this document.
[2025-04-19 21:44] LABS: AST(SGOT) 18 U/L (<=37); Alanine Aminotransfer ALT/SGPT 18 U/L (<=46); Albumin, Serum 4.1 g/dL (3.5-5.0); Alkaline Phosphatase 53 U/L (40-129); Anion Gap 9 (5-15); BUN 11 mg/dL (4-19); BUN/Creat Ratio 9.7 RATIO (10-20); Calcium,Total 9.1 mg/dL (7.6-11.0); Carbon Dioxide 26.0 mmol/L (21.0-32.0); Chloride 101 mmol/L (98-108); Estimated Creatinine Clearance 144.76 ml/min (50-250); Globulin 3.2 g/dL (2.2-4.2); Glucose 92 mg/dL (70-99); Potassium 4.4 mmol/L (3.3-5.1)
[2025-04-19] MEDS: 0.9% Normal Saline (1000mL) 1,000 ML 999 ML IV (21:46)
[2025-04-19 21:47] VITALS: BP 137/71; PULSE 93; RESP 20; O2SAT 97
[2025-04-19 22:40] VITALS: BP 136/71; BP 149/89; BP 153/90; PULSE 90; PULSE 91; PULSE 98
[2025-04-19 22:41] VITALS: BP 136/71; PULSE 91; RESP 20; TEMP 36.9; O2SAT 100
== END 2025-04-19 22:42 | disposition home or self-care (01) ==
PROVIDERS: Emergency Provider Emergency Medicine; PCP Physician Assistant; Visit Provider Emergency Medicine
DX: U07.1 COVID-19 (principal); R55 Syncope and collapse; Z79.899 Other long term (current) drug therapy
CPT/HCPCS: 71046; 80053; 85025; 93005; 96360; 99285; A4216; J2405